=== PATIENT | female | born 1995 | race Caucasian/White ===

== ENCOUNTER 2019-01-21 08:51 | Inpatient (IN) | payer OTHER ==
[~2019-01-21] VITALS: Ht 167.6 cm; Wt 84.8 kg
[2019-01-21] MEDS ORDERED: PRENATAL 19 TA1 EAC1 PO (11:36)
== END 2019-01-22 09:49 | DRG 833 ==
LOC: LDR 08:51 → OB/GYN 17:36
PROVIDERS: ADMIT Obstetrics & Gynecology
PROC: 4A1HXCZ Monitoring of Products of Conception, Cardiac Rate, External Approach (ICD-10-PCS; principal; 2019-01-21)
DX: O47.02 False labor before 37 completed weeks of gestation, second trimester (principal); Z34.02 Encounter for supervision of normal first pregnancy, second trimester

== ENCOUNTER 2019-03-20 16:43 | Outpatient (CLI) | payer OTHER ==
[~2019-03-20 16:43] MED LIST: PRENATAL 19 TA1 EAC1 PO
== END 2019-03-20 17:32 | disposition home or self-care (01) ==
LOC: NST 16:43
DX: Z34.83 Encounter for supervision of other normal pregnancy, third trimester (principal)

== ENCOUNTER 2019-04-02 16:12 | Outpatient (CLI) | payer OTHER | END 2019-04-02 17:31 | disposition still patient (30) | LOC: NST 16:12 | DX: Z34.83 Encounter for supervision of other normal pregnancy, third trimester (principal) ==

== ENCOUNTER 2019-04-02 17:35 | Inpatient (IN) | payer OTHER ==
[~2019-04-02] VITALS: Ht 167.6 cm; Wt 192.0 kg
== END 2019-04-03 09:03 | disposition home or self-care (01) | DRG 833 ==
LOC: LDR 17:35
PROVIDERS: ADMIT Obstetrics & Gynecology
PROC: 4A1HXCZ Monitoring of Products of Conception, Cardiac Rate, External Approach (ICD-10-PCS; principal; 2019-04-02)
DX: O60.03 Preterm labor without delivery, third trimester (principal); Z34.03 Encounter for supervision of normal first pregnancy, third trimester

== ENCOUNTER 2019-04-20 09:27 | Inpatient (IN) | payer OTHER ==
[~2019-04-20] VITALS: Ht 170.2 cm; Wt 91.2 kg
== END 2019-05-23 13:04 | disposition home or self-care (01) | DRG 788 ==
LOC: LDR 04-27 12:00 → OB/GYN 05-20 06:48 → O/R 05-20 14:30 → OB/GYN 05-20 16:59 → LDR 05-24 12:00
PROVIDERS: Obstetrics & Gynecology; ADMIT Obstetrics & Gynecology
PROC: 4A0HXFZ Measurement of Products of Conception, Cardiac Rhythm, External Approach (ICD-10-PCS; 2019-05-20)
PROC: 10D00Z1 Extraction of Products of Conception, Low, Open Approach (ICD-10-PCS; principal; 2019-05-20 15:45)
DX: O82 Encounter for cesarean delivery without indication (principal); O62.1 Secondary uterine inertia; Z3A.39 39 weeks gestation of pregnancy; Z37.0 Single live birth

== ENCOUNTER 2019-04-24 13:30 | Outpatient (CLI) | payer OTHER | END 2019-04-24 14:53 | disposition home or self-care (01) | LOC: NST 13:30 | DX: Z34.83 Encounter for supervision of other normal pregnancy, third trimester (principal) ==

== ENCOUNTER 2019-05-14 17:33 | Outpatient (CLI) | payer OTHER | END 2019-05-14 19:29 | disposition home or self-care (01) | LOC: NST 17:33 | DX: Z34.83 Encounter for supervision of other normal pregnancy, third trimester (principal) ==